=== PATIENT | male | born 1945 | race Caucasian/White ===

== ENCOUNTER 2017-04-08 13:21 | Emergency (ER) | payer MEDICARE, OTHER ==
--- NOTE | 2017-04-08 13:53 | ER Document Report ---
ED General - General Chief Complaint: Constipation Stated Complaint: POSSIBLE CONSTIPATION Time Seen by Provider: 04/08/17 13:50 Mode of Arrival: Ambulatory Information source: Patient Notes: Patient states he is having diffuse abdominal cramping and finally he had have a bowel movement will was unable to. He states he did not try anything to make himself go to the bathroom. He states when he arrived here at the hospital he went into the bathroom and had a large bowel movement and now he feels significantly better. He states the abdominal pain was a cramping sensation. It got better after bowel movement it was worse without a bowel movement. It was moderate to severe. It was intermittent. There is no radiation of the pain. He currently denies any symptoms. And states he feels better and would like to go home. TRAVEL OUTSIDE OF THE [place] IN LAST 30 DAYS: No - Related Data Allergies/Adverse Reactions: pseudoephedrine [From Actifed] Allergy (Verified 04/08/17 13:26) Sulfa (Sulfonamide Antibiotics) Allergy (Verified 04/08/17 13:26) triprolidine [From Actifed] Allergy (Verified 04/08/17 13:26) Past Medical History - General Information source: Patient - Social History Smoking Status: Unknown if Ever Smoked Frequency of alcohol use: None Drug Abuse: None Family History: Reviewed & Not Pertinent Review of Systems - Review of Systems Constitutional: denies: Chills, Fever Cardiovascular: denies: Chest pain, Palpitations Respiratory: denies: Cough, Hemoptysis, Short of breath Physical Exam - Vital signs Vitals: Temp Pulse Resp BP Pulse Ox 98.1 F 84 18 176/76 H 97 04/08/17 13:26 04/08/17 13:26 04/08/17 13:26 04/08/17 13:26 04/08/17 13:26 Interpretation: Normal - General General appearance: Appears well, Alert In distress: None - HEENT Head: Normocephalic, Atraumatic Eyes: Normal Pupils: PERRL - Respiratory Respiratory status: No respiratory distress Chest status: Nontender Breath sounds: Normal Chest palpation: Normal - Cardiovascular Rhythm: Regular Heart sounds: Normal auscultation Murmur: No - Abdominal Inspection: Normal Distension: No distension Bowel sounds: Normal Tenderness: Nontender Organomegaly: No organomegaly - Back Back: Normal, Nontender - Extremities General upper extremity: Normal inspection, Nontender, Normal color, Normal ROM , Normal temperature General lower extremity: Normal inspection, Nontender, Normal color, Normal ROM , Normal temperature, Normal weight bearing. No: Jayy's sign - Neurological Neuro grossly intact: Yes Cognition: Normal Orientation: AAOx4 Bicknell Coma Scale Eye Opening: Spontaneous Josef Coma Scale Verbal: Oriented Bicknell Coma Scale Motor: Obeys Commands Josef Coma Scale Total: 15 Speech: Normal Motor strength normal: LUE, RUE, LLE, RLE Sensory: Normal - Psychological Associated symptoms: Normal affect, Normal mood - Skin Skin Temperature: Warm Skin Moisture: Dry Skin Color: Normal Course - Vital Signs Vital signs: Temp Pulse Resp BP Pulse Ox 98.1 F 84 18 176/76 H 97 04/08/17 13:26 04/08/17 13:26 04/08/17 13:26 04/08/17 13:26 04/08/17 13:26 Discharge - Discharge Clinical Impression: Constipation Qualifiers: Constipation type: slow transit constipation Qualified Code(s): K59.01 - Slow transit constipation Condition: Stable Disposition: HOME, SELF-CARE Instructions: Constipation (COUNT [facility]ES THE [facility]) Additional Instructions: Please call your primary care doctor as soon as possible to arrange follow-up Prescriptions: Peg 3350/Na Sulf,Bicarb,Cl/KCl [Golytely Solution 4000 ml] 4,000 ml PO DAILY #1 bottle
[2017-04-08 13:59] VITALS: BP 160/91
== END 2017-04-08 13:54 | disposition home or self-care (01) ==
LOC: ER 13:21
DX: K59.01 Slow transit constipation (principal); Z88.8 Allergy status to other drugs, medicaments and biological substances; Z88.2 Allergy status to sulfonamides
CPT/HCPCS: 99283